=== PATIENT | female | born 1985 | race Caucasian/White ===

== ENCOUNTER 2022-12-17 10:39 | Inpatient (IN) | payer MEDICAID ==
[~2022-12-17] VITALS: Ht 170.2 cm; Wt 75.0 kg
[2022-12-17 11:53] LABS: COVID AG,FIA SOURCE NASOPHARYNGEAL
[2022-12-17 12:06] LABS: BASOPHILS % (AUTO) 0.3 % (0.0-2.0); EOSINOPHILS % (AUTO) 0.3 % (1.0-6.0); HEMATOCRIT 38.7 % (36-46); HEMOGLOBIN 13.5 g/dL (12.0-16.0); LYMPHOCYTES # (AUTO) 1.2 K/uL (1.0-4.8); MEAN CORPUSCULAR HEMOGLOBIN 34.5 pg (26.0-34.0); MEAN CORPUSCULAR VOLUME 99 fL (80-100); MONOCYTES % (AUTO) 8.2 % (2.0-9.0); NEUTROPHILS # (AUTO) 9.7 K/uL (1.8-7.7); NEUTROPHILS % (AUTO) 81.2 % (40.0-70.0); PLATELET COUNT (AUTO) 153 K/uL (150-450); RED BLOOD CELL COUNT(AUTO) 3.92 MIL/uL (4.00-5.20); RED CELL DISTRIBUTION WIDTH 15.8 % (11.5-14.5)
[2022-12-17 12:21] LABS: AMPHET/METH SCREEN,URINE NEGATIVE (NEGATIVE); BARBITURATE SCREEN, URINE NEGATIVE (NEGATIVE); BENZODIAZEPINES SCREEN,URINE NEGATIVE (NEGATIVE); CANNABINOID SCREEN,URINE POSITIVE (NEGATIVE); COCAINE SCREEN,URINE NEGATIVE (NEGATIVE); METHADONE SCREEN, URINE NEGATIVE (NEGATIVE); OPIATE SCREEN,URINE NEGATIVE (NEGATIVE); PHENCYCLIDINE SCREEN,URINE NEGATIVE (NEGATIVE)
[2022-12-17 12:36] LABS: ALANINE AMINOTRANSFERASE 27 U/L (12-78); ALBUMIN 4.3 g/dL (3.4-5.0); ALKALINE PHOSPHATASE 107 U/L (46-116); ANION GAP 12 mmol/L (8-16); ASPARTATE AMINOTRANSFERASE 47 U/L (15-37); BILIRUBIN,TOTAL 0.8 mg/dL (0.1-1.0); CALCIUM, TOTAL 9.8 mg/dL (8.8-10.5); CARBON DIOXIDE 24 mmol/L (22-29); CHLORIDE 98 mmol/L (98-107); GLOMERULAR FILTR. RATE CALC > 60 mL/min (>60); GLUCOSE,RANDOM 103 mg/dL (70-110); HCG,QUANTITATIVE < 1 mIU/mL (0-6); SODIUM SERUM 134 mmol/L (136-145); THYROID STIMULATING HORMONE 3.09 uIU/mL (0.36-3.74); TOTAL PROTEIN, SERUM 8.8 g/dL (6.4-8.2); UREA NITROGEN, BLOOD 9 mg/dL (7-18)
[2022-12-17 12:39] LABS: POTASSIUM 2.9 mmol/L (3.5-5.1)
[2022-12-17] MEDS ORDERED: POTASSIUM CHLORIDE 20 MEQ ER TABLET PO ONE (12:45)
[2022-12-17] MEDS ORDERED: LORazepam 1 MG TABLET PO ONE (13:15)
[2022-12-17] MEDS ORDERED: HALOPERIDOL 5 MG TABLET PO ONE (13:15)
[2022-12-17] MEDS ORDERED: DiphenhydrAMINE HCL 25 MG CAPSULE PO ONE (13:15)
[2022-12-17 13:17] LABS: APPEARANCE,URINE HAZY (CLEAR); BILIRUBIN,URINE NEGATIVE (NEGATIVE); GLUCOSE, URINE (UA) NEGATIVE (NEGATIVE); KETONES,URINE NEGATIVE (NEGATIVE); LEUKOCYTE ESTERASE ,URINE LARGE (NEGATIVE); NITRATE,URINE POSITIVE (NEGATIVE); OCCULT BLOOD,URINE NEGATIVE (NEGATIVE); PROTEIN,URINE 30-70 mg/dL (NEGATIVE); SPECIFIC GRAVITIY, URINE 1.021 (1.003-1.030); UROBILINOGEN,URINE <=1.0 mg/dL (<=1.0)
[2022-12-17 13:35] LABS: BACTERIA,URINE Many /HPF (None Seen); RBC,URINE None Seen /HPF (0-2); SQUAMOUS EPITHELIAL CELL,UR Few /LPF (None Seen); WBC,URINE 26-50 /HPF (0-5)
[2022-12-17] MEDS ORDERED: CEPHALEXIN MONOHYDRATE 500 MG CAPSULE PO ONE (13:45)
[2022-12-17] MEDS ORDERED: HALOPERIDOL 5 MG TABLET PO PRN (15:45)
[2022-12-17] MEDS: LORazepam 2 MG TABLET PO PRN ×2 (17:17→22:32)
[2022-12-17] MEDS: ZOLPIDEM TARTRATE 10 MG TABLET PO PRN (21:41)
[2022-12-18 00:19] VITALS: BP 100/62
[2022-12-18] MEDS: CEPHALEXIN MONOHYDRATE 500 MG CAPSULE PO SCH ×2 (09:55→17:02)
[2022-12-18 10:24] VITALS: BP 125/80
[2022-12-18] MEDS ORDERED: ONDANSETRON HCL 4 MG TABLET PO PRN (11:15)
[2022-12-18] MEDS ORDERED: LOPERAMIDE HCL 2 MG CAPSULE PO PRN (11:15)
[2022-12-18] MEDS ORDERED: NICOTINE 14 MG/24 HOUR PATCH TD PRN (11:15)
[2022-12-18] MEDS ORDERED: MAGNESIUM HYDROXIDE SUSPENSION 30 ML UDCUP PO PRN (11:15)
[2022-12-18] MEDS ORDERED: IBUPROFEN 400 MG TABLET PO PRN (11:15)
[2022-12-18] MEDS ORDERED: PETROLATUM,WHITE 28 GM JELLY TP PRN (11:15)
[2022-12-18] MEDS ORDERED: ALBUTEROL SULFATE HFA 90 MCG/PUFF 8 GM INHALER IH PRN (11:15)
[2022-12-18] MEDS ORDERED: DOCUSATE SODIUM 100 MG CAPSULE PO PRN (11:15)
[2022-12-18] MEDS ORDERED: MAG HYDROX/AL HYDROX/SIMETH ES 30 ML SUSPENSION UDCUP PO PRN (11:15)
[2022-12-18] MEDS ORDERED: GuaiFENesin/D-METHORPHAN [SUGAR-FREE] 200-20MG/10 ML SYRUP UDCUP PO PRN (11:15)
[2022-12-18] MEDS ORDERED: CloNIDine HCL 0.1 MG TABLET PO PRN (11:15)
[2022-12-18] MEDS ORDERED: ACETAMINOPHEN 325 MG TABLET PO PRN (11:15)
[2022-12-18] MEDS: RisperiDONE 1 MG TABLET PO SCH ×2 (11:45→20:17)
[2022-12-18 16:40] VITALS: BP 112/62
[2022-12-18] MEDS: LORazepam 2 MG TABLET PO PRN (19:51)
[2022-12-18 20:02] VITALS: BP 119/66
[2022-12-19 08:25] VITALS: BP 113/60
[2022-12-19] MEDS: CEPHALEXIN MONOHYDRATE 500 MG CAPSULE PO SCH ×2 (08:55→16:14)
[2022-12-19] MEDS: RisperiDONE 1 MG TABLET PO SCH ×2 (08:55→20:51)
[2022-12-19 16:04] VITALS: BP 115/70
[2022-12-19 20:30] VITALS: BP 90/60
[2022-12-19] MEDS: ZOLPIDEM TARTRATE 10 MG TABLET PO PRN (21:22)
[2022-12-20 09:16] VITALS: BP 99/67
[2022-12-20] MEDS: RisperiDONE 1 MG TABLET PO SCH ×2 (10:44→20:56)
[2022-12-20] MEDS: CEPHALEXIN MONOHYDRATE 500 MG CAPSULE PO SCH ×2 (10:44→18:04)
[2022-12-20 14:01] VITALS: BP 111/61
[2022-12-20 15:01] VITALS: BP 110/71
[2022-12-20 16:00] VITALS: BP 128/66
[2022-12-20 21:21] VITALS: BP 98/67
[2022-12-20] MEDS: ZOLPIDEM TARTRATE 10 MG TABLET PO PRN (22:14)
[2022-12-21 08:00] VITALS: BP 151/86
[2022-12-21] MEDS: RisperiDONE 1 MG TABLET PO SCH ×2 (08:53→20:32)
[2022-12-21] MEDS: CEPHALEXIN MONOHYDRATE 500 MG CAPSULE PO SCH ×2 (08:55→17:06)
[2022-12-21 17:55] VITALS: BP 91/58
[2022-12-21] MEDS: ZOLPIDEM TARTRATE 10 MG TABLET PO PRN (20:32)
[2022-12-21 21:25] VITALS: BP 90/63
[2022-12-22] MEDS ORDERED: RISP1TAB98 PO (04:17)
[2022-12-22] MEDS: CEPHALEXIN MONOHYDRATE 500 MG CAPSULE PO SCH (08:51)
[2022-12-22] MEDS: RisperiDONE 1 MG TABLET PO SCH (08:51)
== END 2022-12-22 13:59 | disposition home or self-care (01) | DRG 750 ==
LOC: EMS 10:41 → 3EI 22:20
PROVIDERS: ADMIT Psychiatry & Neurology Psychiatry; ATTEND Psychiatry & Neurology Psychiatry
DX: F20.9 Schizophrenia, unspecified (principal); F29 Unspecified psychosis not due to a substance or known physiological condition; D72.829 Elevated white blood cell count, unspecified; F10.10 Alcohol abuse, uncomplicated; Z20.822 Contact with and (suspected) exposure to COVID-19; F41.9 Anxiety disorder, unspecified; F12.10 Cannabis abuse, uncomplicated; G47.00 Insomnia, unspecified; N39.0 Urinary tract infection, site not specified; F31.9 Bipolar disorder, unspecified; Z87.891 Personal history of nicotine dependence
CPT/HCPCS: 80053; 80307; 81001; 83735; 84132; 84443; 84702; 85025; 87086; 87186; 99285; G0480